=== PATIENT | female | born 1980 | race African-American/Black ===

== ENCOUNTER → 2017-05-19 | Outpatient (CLI) | payer BC ==
[2015-02-13 12:27] VITALS: BP 122/84
[~2017-05-19] MED LIST: ETON1VAG VG; OXYC-323 PO
--- NOTE | 2017-05-19 13:07 | KCIC ---
ANKLE LEFT 3V History: Medial left ankle and foot pain, no known injury Comparison: None. Findings: 3 views of the left ankle are submitted. No acute fracture or dislocation is identified. Tibiotalar joint space is maintained. Impression: 1. No acute osseous abnormality is identified. Electronically signed by: Francesco Christine MD (05/19/2017 1:03 PM) [id number]
== END | disposition home or self-care (01) ==
LOC: KCIC 11:07
PROVIDERS: ATTEND Family Medicine
DX: M25.572 Pain in left ankle and joints of left foot (principal)
CPT/HCPCS: 73610

== ENCOUNTER → 2017-07-05 | Outpatient (CLI) | payer OTHER ==
[2015-02-13 12:27] VITALS: BP 122/84
[2017-07-05 17:02] LABS: BASO % 0 % (0-3); EOS % 1 % (0-3); HEMATOCRIT 37.3 % (36.0-47.0); HEMOGLOBIN 12.4 g/dL (12.0-15.5); LYMPH # 2.2 x10^3/uL (1.0-4.8); LYMPH % 27 % (24-48); MEAN CORPUSCULAR HEMOGLOBIN 30 pg (25-35); MEAN CORPUSCULAR HGB CONC 33 g/dL (31-37); MEAN CORPUSCULAR VOLUME 91 fL (79-100); MONO % 4 % (0-9); NEUT % 69 % (31-73); PLATELET COUNT 233 x10^3/uL (140-400); RED BLOOD COUNT 4.11 x10^6/uL (3.50-5.40); WHITE BLOOD COUNT 8.2 x10^3/uL (4.0-11.0)
[2017-07-05 17:24] LABS: FREE T4 0.99 ng/dL (0.76-1.46)
== END | disposition home or self-care (01) ==
LOC: LAB 12:15
PROVIDERS: ATTEND Obstetrics & Gynecology
DX: N92.0 Excessive and frequent menstruation with regular cycle (principal); R63.5 Abnormal weight gain
CPT/HCPCS: 36415; 84439; 84443; 85025

== ENCOUNTER → 2018-05-22 | Outpatient (CLI) | payer OTHER ==
[2015-02-13 12:27] VITALS: BP 122/84
--- NOTE | 2018-05-22 11:08 | KCIC ---
EXAM: Left foot and ankle, 3 views. HISTORY: Pain. COMPARISON: None. FINDINGS: Frontal, lateral and oblique views of the left foot and ankle are obtained. There is no fracture, dislocation or subluxation. There is an incidental accessory navicular bone. The ankle mortise is intact. No osteochondral lesion is seen. IMPRESSION: No acute osseous finding. Electronically signed by: Tiffany Do MD (05/22/2018 11:05 AM) [facility]
--- NOTE | 2018-05-22 11:08 | KCIC ---
EXAM: Left foot and ankle, 3 views. HISTORY: Pain. COMPARISON: None. FINDINGS: Frontal, lateral and oblique views of the left foot and ankle are obtained. There is no fracture, dislocation or subluxation. There is an incidental accessory navicular bone. The ankle mortise is intact. No osteochondral lesion is seen. IMPRESSION: No acute osseous finding. Electronically signed by: Tiffany Do MD (05/22/2018 11:05 AM) [facility]
== END | disposition home or self-care (01) ==
LOC: KCIC 09:21
PROVIDERS: ATTEND Nurse Practitioner Family
DX: M25.572 Pain in left ankle and joints of left foot (principal); Z87.442 Personal history of urinary calculi
CPT/HCPCS: 73610; 73630